=== PATIENT | female | born 1935 | race Caucasian/White ===

== ENCOUNTER 2017-09-28 16:04 | Outpatient (CLI) | payer MEDICARE, OTHER ==
[2017-09-28 16:36] LABS: Hemoglobin 13.9 g/dL (12.0-16.0); Mean Corpuscular HGB CONC 32.9 g/dL (32.0-36.0); Mean Corpuscular Hemoglobin 31.8 pg (27.0-31.0); Mean Corpuscular Volume 96.6 fl (81.0-99.0); Mean Platelet Volume 8.6 fL (7.4-10.4); Platelet Count 216 thou/uL (130-400); RBC Distribution Width 11.9 % (11.5-14.5); Red Blood Cell (RBC) Count 4.39 mill/uL (4.20-5.40); White Blood Cell (WBC) Count 5.7 thou/uL (4.8-10.8)
[2017-09-28 16:43] LABS: PTT 26.5 SEC (22.9-36.1); Prothrombin Time 13.1 SEC (12.0-14.7)
[2017-09-28 16:55] LABS: Anion Gap 11 mmol/L (10-20); BUN (Urea Nitrogen) 11 mg/dL (9.8-20.1); Calc. Creatinine Clearance 0 mL/min (70-130); Calcium 9.2 mg/dL (7.8-10.44); Carbon Dioxide 27 mmol/L (23-31); Chloride 98 mmol/L (98-107); Estimated GFR-MDRD 70; Glucose 91 mg/dL (83-110); Potassium 3.9 mmol/L (3.5-5.1); Sodium 132 mmol/L (136-145)
== END 2017-09-28 16:05 | disposition home or self-care (01) ==
LOC: LABBT 16:04
PROVIDERS: ATTEND Surgery
DX: Z01.818 Encounter for other preprocedural examination (principal); M48.061 Spinal stenosis, lumbar region without neurogenic claudication; M54.16 Radiculopathy, lumbar region
CPT/HCPCS: 80048; 85027; 85610; 85730; 93005; 93010

== ENCOUNTER 2017-10-06 18:30 | Day surgery (SDC) | payer MEDICARE, OTHER ==
[2017-09-28 16:22] VITALS: BMI 21.2
[~2017-10-06 18:30] MED LIST: Acetaminophen/Codeine 30-300mg Tablet PO PRN; Bacitracin Zinc Ointment 30 gm TUBE ONE; Bisacodyl 10 MG SUPP PR PRN; CEFAZOLIN/Water 2 GM/20 ML SYRINGE ONE; Dexamethasone 20 MG/5 ML VIAL ONE; Fentanyl 100 MCG/2 ML VIAL ONE; Fleet Enema 133 ML BOT PR PRN; Glycopyrrolate 0.2 MG/ML 5 ML SYRINGE ONE; HYDROmorphone 0.5 MG/0.5 ML SYRINGE ONE; HYDROmorphone 2 MG/ML VIAL SLOW IVP PRN; Hydrochlorothiazide 25 MG TAB PO PRN; Ketorolac Tromethamine 30 MG/ML VIAL IVP PRN; Lidocaine 1% PF 5 ML VIAL ONE; Mag-Al 1200 mg/1200 mg/30 ML UDCUP PO PRN; Milk Of Magnesia 30 ML UDCUP PO PRN; Morphine 4 MG/ML VIAL SLOW IVP PRN; Ondansetron HCl/PF 4 MG/2 ML Vial IVP PRN; Ondansetron HCl/PF 4 MG/2 ML Vial ONE; PHENYLEPHRINE-NS 100 MCG/ML 10 ML SYRINGE ONE; PROPOFOL 200 MG/20 ML VIAL ONE; Promethazine HCl 25 MG/ML VIAL IM PRN; Sodium Chloride 0.9% 10 ML ONE; Thrombin 5000 UNITS/5 ML VIAL ONE; ePHEDrine/0.9% NaCl/PF SYRINGE 50 mg/10 ml ONE
[2017-10-06] MEDS ORDERED: Acetaminophen 325 MG TAB PO PRN (19:00)
[2017-10-06] MEDS: HYDROcodone/Acetaminophen 7.5/325 mg Tablet PO PRN (20:32)
[2017-10-06] MEDS: Sodium Chloride 0.9% 1,000 ML IV SCH (20:33)
[2017-10-06] MEDS: CEFAZOLIN/Water 2 GM/20 ML SYRINGE SLOW IVP SCH (21:29)
[2017-10-07] MEDS: HYDROcodone/Acetaminophen 7.5/325 mg Tablet PO PRN ×5 (02:11→21:26)
[2017-10-07] MEDS: tiZANidine HCl 4 MG TAB PO PRN ×4 (02:12→21:27)
[2017-10-07] MEDS: CEFAZOLIN/Water 2 GM/20 ML SYRINGE SLOW IVP SCH (05:07)
[2017-10-07] MEDS: Levothyroxine Sodium 125 MCG TAB PO SCH (05:07)
[2017-10-07] MEDS: Sodium Chloride 0.9% 1,000 ML IV SCH ×2 (07:21→19:31)
[2017-10-07] MEDS ORDERED: Ondansetron HCl/PF 4 MG/2 ML Vial IVP PRN (08:57)
[2017-10-07] MEDS ORDERED: Ondansetron ODT 4 MG TAB PO PRN (08:57)
--- NOTE | 2017-10-07 11:08 | PRG ---
DATE OF SERVICE: 10/07/2017 SUBJECTIVE: Ms. Steve is postoperative day #01 from L2-L5 laminectomy. She is doing very well and states she feels like she is "20." She is having nausea, though postoperatively and has not yet mobi lized other than to the bathroom, we will work on this today with therapy. Final disposition will be settled once we know how she is doing.
--- NOTE | 2017-10-07 12:02 | OP ---
DATE OF PROCEDURE: 10/06/2017 OR: OR #11. WOUND TYPE: Type 1 wound. SURGEON: Jermaine Prasad M.D. 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 POSTPROCEDURE DIAGNOSES: Multilevel lumbar stenosis with low back and leg pain consistent with neuro genic claudication. PROCEDURE: L2-L3, L3-L4, L4-L5 laminectomies, partial facetectomies with decompression over the L2, L3, L4, L5 nerve roots. DESCRIPTION OF PROCEDURE: After informed consent was obtained from the patient, the patient brought to OR 11. Proper patient pause and identification was carried out. She was placed in excellent endo tracheal anesthesia and positioned prone on the operating table. All appropriate points were padded. We identified the L2, L3, L4, L5 dorsal spines and a linear shelley was made over this region. This a monty was sterilely cleansed, prepared, and draped. Proper patient pause and his case was carried out. The wound was then opened with a combination of sharp, monopolar and blunt dissection, we exposed t he L2, L3, L4 and L5 segments. A localization film confirmed our area of interest. We then performe d L2-L5 laminectomies, partial facetectomies, foraminotomies over the L2, L3, L4, L5 nerve roots. Th ere was no spinal fluid leak. Hemostasis was maximized throughout. The wound was then copiously irr igated and closed in anatomic layers following the sprinkling of vancomycin powder. The patient then emerged from anesthesia.
[2017-10-08] MEDS: HYDROcodone/Acetaminophen 7.5/325 mg Tablet PO PRN ×3 (05:43→17:21)
[2017-10-08] MEDS: tiZANidine HCl 4 MG TAB PO PRN ×3 (05:43→22:52)
[2017-10-08] MEDS: Levothyroxine Sodium 125 MCG TAB PO SCH (05:43)
--- NOTE | 2017-10-08 12:31 | PRG ---
DATE OF SERVICE: 10/08/2017 SUBJECTIVE: Ms. Steve is postoperative day #2 from multilevel lumbar laminectomy. She is an 82-yea r-old very pleasant female. Neurologically, she is doing well. The biggest issue right now is await ing final disposition plans. She is mobilizing with more confidence in her legs and states her leg p ain compared to before surgery has certainly improved. She has as expected postoperative pain in the back. We will make arrangements for a transfer to inpatient rehab.
[2017-10-08] MEDS ORDERED: D5 1/2 NS w/20 mEq KCL 1,000 ML ONE (14:36)
[2017-10-08] MEDS: traMADol HCl 50 MG TAB PO PRN ×2 (14:48→22:52)
[2017-10-08] MEDS: Sodium Chloride 0.9% 1,000 ML IV SCH ×2 (16:47→19:59)
[2017-10-09] MEDS: HYDROcodone/Acetaminophen 7.5/325 mg Tablet PO PRN ×2 (05:48→11:56)
[2017-10-09] MEDS: Levothyroxine Sodium 125 MCG TAB PO SCH (05:48)
--- NOTE | 2017-10-09 08:44 | PRG ---
DATE OF SERVICE: 10/09/2017 Ms. Steve is now postoperative day #3, having undergone multilevel lumbar laminectomies. She contin ues to improve. She states her back pain is slightly improved today than it was yesterday. She stat es that typically it is only present with movement. Muscle relaxants help to improve her pain. She states she does feel slightly stronger on her feet and was able to walk a significant distance yester day with physical therapy. She has good strength in the bilateral lower extremities with intact sens ation to light touch throughout. She is stable for discharge and we are [facility]. All her paperwork has been completed and she is ready for discharge once arra ngements have been made. Please call with any questions.
[2017-10-09] MEDS: traMADol HCl 50 MG TAB PO PRN (08:46)
[2017-10-09] MEDS: Sodium Chloride 0.9% 1,000 ML IV SCH (11:33)
[2017-10-09 12:09] VITALS: BP 162/84; TEMP 97.9
--- NOTE | 2017-10-12 09:51 | DIS ---
DATE OF ADMISSION: 10/06/2017 DATE OF DISCHARGE: 10/09/2017 DISCHARGE DIAGNOSES: 1. Low back pain with bilateral lower extremity pain. 2. Neurogenic claudication. 3. Lumbar spinal stenosis. HOSPITAL COURSE: Ms. Steve was admitted to [facility] to undergo L2-L5 laminectomies, part ial facetectomies, and foraminotomies with Dr. Prasad on 10/06/2017. The patient required 3 overnigh t stays for control with back pain as well as improvement in her gait. She later met criteria for di schardaniel and was later admitted to inpatient rehab, doing well. At the time of discharge, her low gregorio k incisional pain is significantly improved and she had complete resolution of her bilateral lower-ex tremity pain. Appropriate patient education was provided and outpatient followup appointments were s cheduled. Enough opportunity was given to the patient and her family to discuss their questions and concerns and at the time of discharge, she was doing very well postoperatively.
== END 2017-10-09 13:45 ==
LOC: SDC 18:30 → SJJU 18:31 → SDC 10-09 13:45
PROVIDERS: ATTEND Surgery
PROC: 01NB0ZZ Release Lumbar Nerve, Open Approach (ICD-10-PCS; principal; 2017-10-06)
DX: M48.062 Spinal stenosis, lumbar region with neurogenic claudication (principal); F17.210 Nicotine dependence, cigarettes, uncomplicated; Z79.899 Other long term (current) drug therapy
CPT/HCPCS: 63047; 63048 ×3; 76001; 96374 ×2; 97110; 97116 ×2; 97139 ×2; 97530 ×2; 97535; G8978; G8979; G8987; G8988; A4216; J0131; J1100; J1170; J2001; J2405; J2550; J2704; J3010; J3370; J3490; Q0162

== ENCOUNTER 2019-10-01 19:10 | Inpatient (IN) | payer MEDICARE, OTHER ==
[2019-10-01 20:04] LABS: Bacteria/HPF None Seen HPF (None Seen); Bilirubin Negative (Negative); Blood, Urine 2+ (Negative); Clarity Clear (Clear); Glucose, Urine (Dipstick) Normal (Negative); Leukocyte Negative Leu/uL (Negative); Nitrite Negative (Negative); Protein, Urine (Dipstick) Negative (Neg-Trace); RBC/HPF Greater than 50 HPF (0-3); Squamous Epithelial 0-3 HPF (0-3); Urobilinogen Normal mg/dL (Less than 2)
[2019-10-01 20:23] LABS: #Lymphocytes 1.3 thou/uL (1.20-3.40); #Monocytes 0.7 thou/uL (0.11-0.59); #Neutrophils 8.1 thou/uL (1.40-6.50); %Basophils 0.1 % (0.0-1.0); %Eosinophils 0.5 % (0.0-10.0); %Monocytes 6.7 % (0.0-10.0); %Neutrophils 79.8 % (42.0-75.0); Hemoglobin 12.9 g/dL (12.0-16.0); Mean Corpuscular HGB CONC 33.8 g/dL (32.0-36.0); Mean Corpuscular Hemoglobin 34.3 pg (27.0-31.0); Mean Platelet Volume 8.7 fL (7.4-10.4); Platelet Count 192 thou/uL (130-400); RBC Distribution Width 13.1 % (11.5-14.5); Red Blood Cell (RBC) Count 3.75 mill/uL (4.20-5.40); White Blood Cell (WBC) Count 10.2 thou/uL (4.8-10.8)
--- NOTE | 2019-10-01 20:30 | RAD ---
CHEST ONE VIEW: 10/01/19 HISTORY: Altered mental status. COMPARISON: None. Heart size is enlarged. Mild pulmonary venous congestion. No pneumothorax. No effusion. No acute osse ous abnormality. IMPRESSION: Cardiomegaly and low grade pulmonary venous congestion. POS: HOME
--- NOTE | 2019-10-01 20:31 | CT ---
CT BRAIN WITHOUT CONTRAST: 10/01/19 HISTORY: Altered mental status. COMPARISON: None. FINDINGS: High grade periventricular and deep white matter microangiopathic changes. 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 No acute hemorrhage. Senile basal ganglia calcifications. Calvarium is intact. Left maxillary sinus mucosal retention cyst. IMPRESSION: Chronic findings. No acute intracranial abnormality. POS: HOME
[2019-10-01 20:43] LABS: ALT (SGPT) 13 U/L (8-55); AST (SGOT) 33 U/L (5-34); Albumin 4.1 g/dL (3.4-4.8); Alkaline Phosphatase 81 U/L (40-110); Anion Gap 18 mmol/L (10-20); BUN (Urea Nitrogen) 13 mg/dL (9.8-20.1); Bilirubin, Total 0.7 mg/dL (0.2-1.2); CK (CPK) 424 U/L (29-168); Calc. Creatinine Clearance 0 mL/min (70-130); Carbon Dioxide 21 mmol/L (23-31); Chloride 101 mmol/L (98-107); Estimated GFR-MDRD 44; Globulin 2.7 g/dL (2.4-3.5); Glucose 77 mg/dL (83-110); Potassium 4.1 mmol/L (3.5-5.1); Protein, Total 6.8 g/dL (6.0-8.3); Sodium 136 mmol/L (136-145)
[2019-10-01] MEDS ORDERED: Aspirin 300 MG Suppository ONE (21:42)
[2019-10-02] MEDS ORDERED: Acetaminophen 650 MG Suppository PR PRN (00:01)
[2019-10-02] MEDS ORDERED: Sodium Chloride 0.9% 1,000 ML IV SCH (00:15)
--- NOTE | 2019-10-02 00:48 | PDOC.HHP ---
Hospitalist HPI - History of Present Illness Confusion, slurred speech History of Present Illness: Patient reportedly AOx4 as per her son who spoke with Dr. Cornejo. She lives alone and noted to be confused today with slurred speech. She was found by EMS in bed soaked in urine. Family last spoke with her on at which time she was at baseline. They were unable to reach her today which prompted them to call EMS. Patient with abnormal speech, unable to obtain much information from her. Able to follow commands and answer some questions. She knows she is at [facility]. Otherwise answering with garbled speech. Shakes her head yes to having trouble speaking. Shakes her head yes when asked if she lives alone. ED Course: CT brain: Chronic findings. No acute intracranial abnormality. Chest Xray: Cardiomegaly and low grade pulmonary venous congestion. Labs notable for CK 424, BUN 13, Creat 1.17, GFR 44. Glucose 77. Trop negative. WCC 10.2, Hgb 12.9, Platelets 192, neutrophils 8.1 UA 11-20 WBC, >50 RBC, 2+ blood. Per RN in ED, UA obtained via straight catheter and had 250 mLs out. Rectal aspirin given in ED. Hospitalist ROS - Review of Systems ROS unobtainable: due to mental status Other: Nods yes to having difficulty with speech. - Medication Medications: Unable to verify due to mental status. Son does not know. ALLERGIES: No known drug allergies. Hospitalist History - Past Medical History Source: family, old records Cardiac: reports: HTN, Hyperlipidemia Endocrine: reports: Hypothyroidism - Past Surgical History Past Surgical History: reports: Other (back surgery) - Family History Family History: reports: no pertinent history - Social History Smoking Status: Never smoker Alcohol: reports: None Drugs: reports: none Living Situation: Alone Activity level: independent ambulation (at baseline) - Exam General Appearance: awake alert (Alert to place ([facility]), attempting to get out of bed.) Eye: PERRL, anicteric sclera ENT: normocephalic atraumatic Neck: supple, symmetric, no lymphadenopathy Heart: RRR, normal peripheral pulses Respiratory: CTAB, no rales, no ronchi, normal chest expansion, no tachypnea Gastrointestinal: soft, non-distended Extremities: no edema Skin: tenting Neurological: speech deficit (abnormal speech, ?dysarthria) Neurological - other findings: Follows all comands very well, facial movements normal Musculoskeletal: normal tone, normal strength Musculoskeletal - other findings: Power 5/5 in all limbs, nods yes that sensation is normal Psychiatric: oriented to place Hospitalist Results - Labs Result Diagrams: 10/01/19 20:12 10/01/19 20:12 Lab results: WBC 10.2 thou/uL (4.8-10.8) 10/01/19 20:12 Hgb 12.9 g/dL (12.0-16.0) 10/01/19 20:12 Hct 38.0 % (36.0-47.0) 10/01/19 20:12 MCV 101.0 fL (78.0-98.0) H 10/01/19 20:12 Plt Count 192 thou/uL (130-400) 10/01/19 20:12 Neutrophils % 79.8 % (42.0-75.0) H 10/01/19 20:12 Sodium 136 mmol/L (136-145) 10/01/19 20:12 Potassium 4.1 mmol/L (3.5-5.1) 10/01/19 20:12 Chloride 101 mmol/L (98-107) 10/01/19 20:12 Carbon Dioxide 21 mmol/L (23-31) L 10/01/19 20:12 BUN 13 mg/dL (9.8-20.1) 10/01/19 20:12 Creatinine 1.17 mg/dL (0.6-1.1) H 10/01/19 20:12 Glucose 77 mg/dL (83-110) L 10/01/19 20:12 Calcium 9.0 mg/dL (7.8-10.44) 10/01/19 20:12 Total Bilirubin 0.7 mg/dL (0.2-1.2) 10/01/19 20:12 AST 33 U/L (5-34) 10/01/19 20:12 ALT 13 U/L (8-55) 10/01/19 20:12 Alkaline Phosphatase 81 U/L (40-110) 10/01/19 20:12 Creatine Kinase 424 U/L (29-168) H 10/01/19 20:12 Troponin I 0.026 ng/mL (< 0.028) 10/01/19 20:12 Serum Total Protein 6.8 g/dL (6.0-8.3) 10/01/19 20:12 Albumin 4.1 g/dL (3.4-4.8) 10/01/19 20:12 Urine Ketones Negative mg/dL (Negative) 10/01/19 19:56 Urine Blood 2+ (Negative) A 10/01/19 19:56 Urine Nitrite Negative (Negative) 10/01/19 19:56 Ur Leukocyte Esterase Negative Augusto/uL (Negative) 10/01/19 19:56 Urine RBC Greater than 50 HPF (0-3) A 10/01/19 19:56 Urine WBC 11-20 HPF (0-3) A 10/01/19 19:56 Ur Squamous Epith Cells 0-3 HPF (0-3) 10/01/19 19:56 Urine Bacteria None Seen HPF (None Seen) 10/01/19 19:56 - Radiology Interpretation CT scan - head Status: report reviewed by me Chest x-ray Status: report reviewed by me Hospitalist H&P A/P - Problem (1) Confusion Code(s): R41.0 - DISORIENTATION, UNSPECIFIED Status: Acute (2) Speech abnormality Status: Acute (3) EDIS (acute kidney injury) Code(s): N17.9 - ACUTE KIDNEY FAILURE, UNSPECIFIED Status: Acute (4) Essential hypertension Code(s): I10 - ESSENTIAL (PRIMARY) HYPERTENSION Status: Chronic (5) Hyperlipidemia Code(s): E78.5 - HYPERLIPIDEMIA, UNSPECIFIED Status: Chronic - Plan Plan: ?Confusion rather than dysarthria. Follows commands very well and oriented to place. Strength intact. Admitted for CVA rule out. Will be going to stroke/obs. Neurology consult placed, input appreciated. MRI brain if found to be indicated. Echo ordered. Has EDIS. Given gentle IVF. No evidence of underlying infection. Will obtain bladder scan to ensure no retention. Monitor glucose (was 77 in the ED, no known diabetes). Home meds to be verified and reconciled. PT/OT Bedside screening for dysphagia. Keep NPO Falls precaution CODE STATUS FULL Surrogate decision maker is her son Felipe Steve. ADDENDUM: notified by RN on stroke unit, patient with >999 mLs on bladder scan and noted to have overflow incontinence upon scanning done at bedside. Carney catheter ordered and will repeat UA/UCx.
[2019-10-02 01:51] VITALS: BMI 21.8
[2019-10-02 03:00] LABS: Lactic Acid 1.2 mmol/L (0.5-2.2)
[2019-10-02 03:33] LABS: Anion Gap 16 mmol/L (10-20); BUN (Urea Nitrogen) 12 mg/dL (9.8-20.1); Calc. Creatinine Clearance 36 mL/min (70-130); Carbon Dioxide 24 mmol/L (23-31); Cardiac Risk 3.8 (Less than 4.5); Chloride 100 mmol/L (98-107); Cholesterol 312 mg/dl (< 200 Desired); Estimated GFR-MDRD 47; Glucose 66 mg/dL (83-110); HDL Cholesterol 83 mg/dL (>60 Neg Risk); LDL Cholesterol, Calculated 206 mg/dL; Potassium 3.7 mmol/L (3.5-5.1); Sodium 136 mmol/L (136-145); Triglycerides 114 mg/dL (Less than 150)
[2019-10-02 05:45] LABS: Bacteria/HPF None Seen HPF (None Seen); Bilirubin Negative (Negative); Blood, Urine 1+ (Negative); Clarity Clear (Clear); Glucose, Urine (Dipstick) Normal (Negative); Leukocyte Negative Leu/uL (Negative); Nitrite Negative (Negative); Protein, Urine (Dipstick) 10 mg/dL (Neg-Trace); Squamous Epithelial 0-3 HPF (0-3); Urobilinogen Normal mg/dL (Less than 2); WBC/HPF 0-3 HPF (0-3)
[2019-10-02 05:46] LABS: Urine Culture Reflex No No
[2019-10-02] MEDS ORDERED: Labetalol HCl 100 MG/20 ML VIAL SLOW IVP PRN (08:40)
[2019-10-02] MEDS ORDERED: D5 1/2 NS w/20 mEq KCL 1,000 ML IV SCH (08:45)
[2019-10-02 08:55] LABS: #Eosinphils 0.1 thou/uL (0.0-0.7); #Lymphocytes 1.5 thou/uL (1.20-3.40); #Monocytes 0.6 thou/uL (0.11-0.59); #Neutrophils 5.7 thou/uL (1.40-6.50); %Basophils 0.3 % (0.0-1.0); %Eosinophils 1.4 % (0.0-10.0); %Lymphocytes 18.3 % (21.0-51.0); %Monocytes 7.6 % (0.0-10.0); %Neutrophils 72.3 % (42.0-75.0); Hemoglobin 12.1 g/dL (12.0-16.0); Mean Corpuscular HGB CONC 33.6 g/dL (32.0-36.0); Mean Corpuscular Hemoglobin 33.8 pg (27.0-31.0); Platelet Count 193 thou/uL (130-400); Red Blood Cell (RBC) Count 3.58 mill/uL (4.20-5.40); White Blood Cell (WBC) Count 7.9 thou/uL (4.8-10.8)
[2019-10-02] MEDS ORDERED: Aspirin 300 MG Suppository PR SCH (09:00)
[2019-10-02] MEDS: hydrALAZINE 20 MG/ML VIAL SLOW IVP PRN (09:31)
[2019-10-02 11:10] LABS: Thyroid Stimulating Hormone 1.5147 uIU/mL (0.35-4.94)
[2019-10-02 11:53] LABS: Free T4 (Free Thyroxine) 0.4 ng/dL (0.70-1.48)
--- NOTE | 2019-10-02 12:32 | MRI ---
MRI BRAIN WITHOUT IV CONTRAST: HISTORY: Altered mental status. Stroke. CVA. COMPARISON: CT brain from 10/01/2019. 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 No evidence for abnormal diffusion to suggest acute infarct. Expe cted flow voids are present. Minimal sinus mucosal changes. No mass or midline shift. No acute hemorr rasta. 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 No e vidence for acute infarct. POS: [facility]
[2019-10-02] MEDS ORDERED: Levothyroxine Sodium 50 MCG TAB PO SCH (13:00)
[2019-10-02] MEDS ORDERED: Aspirin 81 mg Enteric Coated Tablet PO SCH (13:00)
--- NOTE | 2019-10-02 13:39 | PRG ---
DATE OF SERVICE: 10/02/2019 SUBJECTIVE: An 84-year-old female with hypothyroidism, presented to the emergency room with altered mentation along with slurriness of speech. She currently lives alone at home. She was found to have urinary retention. Her initial brain CT was negative for acute findings except for basal ganglia calcification. Chest x-ray was negative for infiltrate. Urinalysis was negative for bacteria. It showed 11 to 20 wbc's with greater than 50 rbc's after straight catheterization. At this time, mentation is gradually improving. She denies any fever, chills, cough, shortness of breath, wheezing, sick contacts, or new focal deficit. REVIEW OF SYSTEMS: As discussed above. OBJECTIVE: VITAL SIGNS: Temperature 98.1, pulse rate of 62, respirations of 14, blood pressure 147/81, blood pressure earlier was 197/107 and 205/113, O2 saturation 98% on room air. GENERAL: An 84-year-old female in no apparent distress. LUNGS: Clear to auscultation bilaterally with minimal rhonchi at bases. There were no wheezing or rales. HEART: S1, S2 present. Regular rate and rhythm. No rubs or gallops. ABDOMEN: Soft, nontender. Bowel sounds present. No rebound or guarding. EXTREMITIES: No edema or calf tenderness. NEUROLOGICAL: The patient is alert, awake, and oriented x2. She thinks this is August of 2019. She knows that she is at [facility]. Power was 5/5 in all extremities. Sensation to touch was normal bilaterally. Reflexes were equivocal. Gait was not assessed. LABORATORY FINDINGS: WBC 7.9, hemoglobin 12.1, hematocrit 36, platelet of 193. Chemistry showed sodium 136, potassium 4.1, chloride 101, bicarb 21, BUN 13, and creatinine 1.17. Her free T4 was 0.4. TSH was 1.51. Total cholesterol was 312 with triglyceride 114, LDL of 206. Urinalysis as discussed above. Urine culture has been negative so far. CT scan of the brain and chest x-ray by my review as discussed above. 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 IMPRESSION: 1. Toxic metabolic encephalopathy, multifactorial. 2. Urinary retention. 3. Suspected urinary tract infection. 4. Chronic kidney disease, stage 3. 5. Hypoglycemia with blood sugar of 66. 6. Hyperlipidemia. 7. History of hypothyroidism with abnormal thyroid studies. 8. Elevated CK of 424 on admission. 9. Mild metabolic acidosis on admission. 10. Uncontrolled hypertension. PLAN: The patient will be monitored in the stroke unit. Neurology input is pending at this time. We will start her on low-dose aspirin. We will add dextrose to the IV fluid. We will resume diet once cleared by Speech. We will start her on low-dose amlodipine. Add low-dose statin and levothyroxine. Echocardiogram is pending. Renal ultrasound is pending. We will check folic acid and vitamin B12. Repeat CK in a.m. Continue Physical Therapy and Occupational Therapy evaluation. DISPOSITION: Probably in 24-48 hours if stable. The patient understands the above plan of care. We will update the family. Job ID: [id number]
--- NOTE | 2019-10-02 14:12 | CON ---
DATE OF TELENEUROLOGY CONSULTATION: 10/02/2019 CHIEF COMPLAINT: Confusion. HISTORY OF PRESENT ILLNESS: The patient was not able to give much medical history. Most of her history was obtained from the chart, and I reviewed the history and physical from both the ED doctor as well as the hospitalist. The patient apparently was alert, awake, oriented, and lives alone. She was found by EMS in her bed soaked in urine. Family last spoke to her on at which time she was at baseline and she was unable to be reached. Therefore, they called EMS and the patient was brought here to the emergency room and admitted now. The patient had abnormal speech and difficulty with her cognitive status and was unable to give any medical history. So, in the ER, she had a CT head and urinalysis and she had 250 mL after catheterization. Current working diagnosis is altered mental status of unknown etiology at this time, and Neurology consultation was called in for this reason. PREVIOUS MEDICAL HISTORY: The patient has history of hypercholesterolemia, hypertension, and hypothyroidism. SURGICAL HISTORY: Back surgery. FAMILY HISTORY: Negative for any similar issues, but mother had CVA at 86 per patient. A brother also had a stroke at 72. She had dementia as well per patient. SOCIAL HISTORY: Nonsmoker. No alcohol. Lives at home. REVIEW OF SYSTEMS: PULMONARY: Negative for shortness of breath or cough. GI: Negative for nausea, vomiting, or diarrhea. NEUROLOGICAL: Positive for altered mental status. GENITOURINARY: Positive for bladder incontinence. MUSCULOSKELETAL: Positive for back pain and back surgery. DERMATOLOGIC: Negative for rash. LAB WORKUP: White count 7.9, hemoglobin 12.1, hematocrit 36, platelet count 193. Chemistry: Sodium 136, potassium 3.7, chloride 100, bicarb 24, BUN 12, creatinine 1.11, glucose 66. Cholesterol 312, triglycerides 114, LDL 206, HDL 83, and free T4 is 0.4. TSH 1.51. Her urinalysis was abnormal, but no growth of any bacteria. Her MRI was completed at the time of this dictation and MRI report did not show any acute infarct, but she did have some atrophy, chronic white matter changes with some old left cerebellar infarct as well. PHYSICAL EXAMINATION: VITAL SIGNS: Temperature 97.7, pulse 55, blood pressure 205/113, and O2 sats 98 %. GENERAL APPEARANCE: Well-built, well-nourished lady, who is comfortable in bed. CHEST: Clear vesicular breathing. CARDIOVASCULAR: S1, S2 heard. No murmurs. ABDOMEN: Soft. NEUROLOGICAL EXAMINATION: HIGHER INTELLECTUAL FUNCTIONS: She was confused and was not oriented to time, place, but oriented to person, and she stated she had back surgery and was in rehab recently and she is aware that she is at the hospital. CRANIAL NERVES 2 THROUGH 12: Normal extraocular movements. Pupils 2 mm, reactive, and normal sensation of face. No facial asymmetry. Tongue midline. MOTOR: Bulk normal. Tone normal. STRENGTH: 5/5 throughout, but she did have a very slight left upper extremity drift and there might be slight left lower extremity weakness of 5-/5, could be chronic, muscle groups tested in iliopsoas, hamstrings, quadriceps, ankle dorsiflexion, plantar flexion, deltoid, biceps, triceps, wrist extension and flexion, finger extension and flexion. DEEP TENDON REFLEXES: 1+ throughout. SENSORY: Normal. CEREBELLAR: Normal. IMPRESSION AND PLAN: The patient is an 84-year-old lady with acute confusional state and incontinence of urine, which was thought to be overflow incontinence and she does not seem to have acute urinary tract infection at this time. She is somewhat confused even now, and she was not in contact with her family for at least 24 hours, which is what prompted this EMS call and ER visit. At this time, she is stable but does not seem to have any acute infarct. This could be multifactorial confusional state, likely due to metabolic issues such as thyroid dysfunction and could be mild dehydration and hypertension as well. I do not see any acute neurological event with this. Please call Neurology if you have further questions. Job ID: [id number] [facility]
--- NOTE | 2019-10-02 14:26 | ULT ---
Bilateral renal ultrasound CLINICAL INDICATION: Urinary retention. Acute renal insufficiency. COMPARISON: None FINDINGS: Right kidney: There is no evidence of a renal mass, renal calculus, or hydronephrosis seen. The right kidney measures 8 cm x 4.7 cm. Left kidney: Prominence of the renal pelvis without definitive calyceal dilatation. There is mild pro minence of the medullary pyramids. No renal cortical thinning or renal mass is visualized. No perinephric fluid collection is seen.The left kidney measures 9 cm x 4.7 cm. Urinary bladder: Distended but otherwise has a normal sonographic appearance. The urinary bladder vol ume is 663.5 mL. Manpower Development Manager notes report that the patient does not have the urge to void. IMPRESSION: 1. Urinary bladder distention with urinary bladder volume of 663.5 mL. The patient reports she does n ot have the urge to void. 2. Mild dilatation of the left renal pelvis. There is otherwise no overt hydronephrosis.
[2019-10-02] MEDS: Amlodipine 5 MG TAB PO SCH ×2 (14:28→15:14)
[2019-10-02] MEDS ORDERED: Amlodipine 5 MG TAB PO SCH ×2 (14:45→21:00)
--- NOTE | 2019-10-02 18:51 | CON ---
DATE OF CONSULTATION: 10/02/2019 REASON FOR CONSULTATION: Unable to place a Carney catheter. HISTORY: Ms. Steve is an 84-year-old female who lives alone and was admitted to the hospital on 10/01/2019 for altered mental status. She was brought to the hospital because the family was unable to get her to respond to phone calls when she was found she was in her bed soaked in her own urine and not oriented. She was brought to the hospital for further evaluation and is currently being evaluated for possible CVA. History is obtained from the chart and from the patient, although the patient's history may not be very reliable. She denies any urologic history. Attempts were made to place Carney catheter by 2 different people and they were unsuccessful. She denies any incontinence. She states that when at home she does not wear any protection and does not have any problems urinating. PAST MEDICAL HISTORY: 1. Thyroid disease. 2. Hyperlipidemia. 3. Hypertension. PAST SURGICAL HISTORY: Back surgery in 2018. SOCIAL HISTORY: Denies excessive alcohol use, although she does have a history of smoking. REVIEW OF SYSTEMS: RESPIRATORY: Denies any wheezing or shortness of breath. CARDIOVASCULAR: Denies chest pain or palpitations. GASTROINTESTINAL: Denies chronic constipation or diarrhea. GENITOURINARY: Please see history of present illness. NEUROLOGIC: Recent altered mental status, but denies any prior history of strokes. PHYSICAL EXAMINATION: VITAL SIGNS: Temperature 99.4, blood pressure 157/90, pulse 65, and O2 saturation 97% on room air. HEENT: Normocephalic and atraumatic. NECK: Supple without masses. CHEST: Clear to auscultation. CARDIOVASCULAR: Regular rate and rhythm. ABDOMEN: Soft and nontender. No palpable masses. Liver and spleen not palpable. No abdominal tenderness noted. GENITOURINARY: External genitalia normal. Urethral meatus is recessed somewhat. No vaginal masses noted. Urethra was sterilely prepped and draped and a catheter was placed. She drained over 600 mL of clear yellow urine. LABORATORY DATA: UA on admission demonstrated no bacteria, there was 1+ blood in the urine. Chemistry: Creatinine 1.11. CBC: WBC 7.9, hemoglobin 12.1, and hematocrit 36.0. Renal ultrasound: Mild fullness in left renal pelvis. No hydronephrosis or renal mass or stone seen. IMPRESSION: Ms. Steve is an 84-year-old female who denies prior urologic history or any voiding symptoms. She is noted to have a large postvoid residual over 600 mL and attempts to place Carney catheter by two different nurses were unsuccessful. The catheter is now in place and draining clear yellow urine. Urine culture at this time is negative at 12 hours. When mental status and ambulation returned to normal, it should be okay to remove her Carney catheter to reassess her voiding pattern. RECOMMENDATIONS: Carney catheter to gravity until the patient has regained normal mental status and ambulatory status and then Carney catheter can be removed. Job ID: [id number]
[2019-10-02] MEDS: Atorvastatin Calcium 10 MG TAB PO SCH (21:24)
[2019-10-03] MEDS ORDERED: Haloperidol Lactate 5 MG/ML VIAL SLOW IVP SCH (03:45)
[2019-10-03] MEDS: Acetaminophen 325 MG TAB PO PRN ×2 (04:20→11:48)
[2019-10-03] MEDS: Levothyroxine Sodium 50 MCG TAB PO SCH (04:20)
[2019-10-03] MEDS ORDERED: Lorazepam 2 MG/ML VIAL SLOW IVP SCH (05:00)
[2019-10-03 05:53] LABS: ALT (SGPT) 12 U/L (8-55); AST (SGOT) 41 U/L (5-34); Albumin 3.6 g/dL (3.4-4.8); Alkaline Phosphatase 69 U/L (40-110); Anion Gap 11 mmol/L (10-20); BUN (Urea Nitrogen) 12 mg/dL (9.8-20.1); Bilirubin, Total 0.8 mg/dL (0.2-1.2); CK (CPK) 912 U/L (29-168); Calc. Creatinine Clearance 33 mL/min (70-130); Calcium 8.7 mg/dL (7.8-10.44); Carbon Dioxide 23 mmol/L (23-31); Chloride 101 mmol/L (98-107); Estimated GFR-MDRD 43; Globulin 2.7 g/dL (2.4-3.5); Glucose 91 mg/dL (83-110); Potassium 3.4 mmol/L (3.5-5.1); Protein, Total 6.3 g/dL (6.0-8.3); Sodium 132 mmol/L (136-145)
[2019-10-03] MEDS ORDERED: Cyanocobalamin 1000 MCG/ML VIAL IM SCH (08:30)
[2019-10-03] MEDS: Amlodipine 5 MG TAB PO SCH ×2 (08:52→22:02)
[2019-10-03] MEDS: Aspirin 81 mg Enteric Coated Tablet PO SCH (08:56)
[2019-10-03] MEDS: Multivit, Therapeutic 1 TAB PO SCH (08:56)
[2019-10-03] MEDS: Folic Acid 1 MG TAB PO SCH ×2 (08:57→22:18)
[2019-10-03] MEDS ORDERED: Folic Acid 1 MG TAB PO SCH (09:00)
[2019-10-03] MEDS ORDERED: Cyanocobalamin (Vitamin B-12) 1,000 MCG TAB PO SCH (09:00)
[2019-10-03] MEDS: NS 0.9% w/ 20 MEQ KCL 1,000 ML/1,000 ML BAG IV SCH ×2 (09:03→22:58)
--- NOTE | 2019-10-03 11:35 | PDOC.HOSPP ---
- Subjective Encounter Date: 10/03/19 Subjective: Patient feels much better and is oriented to person, place and time. - Objective Vital Signs & Weight: Vital Signs (12 hours) Temp Pulse Resp BP BP Pulse Ox 10/03/19 08:52 78 183/90 H 10/03/19 07:53 97.6 F 78 16 183/90 H 98 10/03/19 00:00 98.5 F 68 16 193/95 H 97 Weight Weight 127 lb 4.8 oz I&O: 10/02/19 10/03/19 10/04/19 06:59 06:59 06:59 Intake Total 234 1070 Output Total 662 594 5441 Balance -36 -700 -118 Result Diagrams: 10/02/19 08:35 10/03/19 05:03 Additional Labs: Accuchecks 10/02/19 12:37 POC Glucose 117 H Radiology Reviewed by me: Yes EKG Reviewed by me: Yes Hospitalist ROS - Review of Systems Constitutional: reports: fever, chills, sweats, weakness, malaise, other Eyes: reports: pain, vision change, conjunctivae inflammation, eyelid inflammation, redness, other ENT: reports: ear pain, ear discharge, nose pain, nose discharge, nose congestion, mouth pain, mouth swelling, throat pain, throat swelling, other Respiratory: reports: cough, dry, shortness of breath, hemoptysis, SOB with excertion, pleuritic pain, sputum, wheezing, other Cardiovascular: reports: chest pain, palpitations, orthopnea, paroxysmal noc. dyspnea, edema, light headedness, other Gastrointestinal: reports: nausea, vomiting, abdominal pain, diarrhea, constipation, melena, hematochezia, other Genitourinary: reports: dysuria, frequency, incontinence, hematuria, retention, other Musculoskeletal: reports: neck pain, shoulder pain, arm pain, back pain, hand pain, leg pain, foot pain, other Skin: reports: rash, lesions, shantell, bruising, other Neurological: reports: confusion - Medication Medications: Active Medications Generic Name Dose Route Start Last Admin Trade Name Freq PRN Reason Stop Dose Admin Acetaminophen 650 mg 10/03/19 04:13 10/03/19 04:20 Tylenol PO 650 mg Q4H PRN Administration Headache/Fever/Mild Pain (1-3) Amlodipine Besylate 5 mg 10/03/19 09:00 10/03/19 08:52 Norvasc PO 5 mg BID CHELSEA Administration Aspirin 81 mg 10/03/19 09:00 10/03/19 08:56 Ecotrin PO 81 mg DAILY CHELSEA Administration Atorvastatin Calcium 10 mg 10/02/19 21:00 10/02/19 21:24 Lipitor PO 10 mg HS CHELSEA Administration Cyanocobalamin 1,000 mcg 10/03/19 08:30 10/03/19 10:34 Vitamin B-12 IM 10/03/19 12:00 1,000 mcg ONE CHELSEA Administration Folic Acid 1 mg 10/03/19 09:00 10/03/19 08:52 Folvite PO 1 mg DAILY CHELSEA Administration Folic Acid 1 mg 10/03/19 09:00 10/03/19 08:57 Folvite PO Not Given BID CHELSEA Hydralazine HCl 10 mg 10/02/19 08:40 10/02/19 09:31 Apresoline SLOW IVP 10 mg Q4H PRN Administration SBP Greater Than 180 Potassium Chloride/Sodium Chloride 1,000 ml in 1,000 mls @ 100 mls/hr 08:30 10/03/19 09:03 Ns 0.9% W/ 20 Meq Kcl IV 10/04/19 04:29 1,000 mls .Q10H CHELSEA Administration Levothyroxine Sodium 50 mcg 10/03/19 06:00 10/03/19 04:20 Synthroid PO 50 mcg 0600 CHELSEA Administration Multivitamins 1 tab 10/03/19 09:00 10/03/19 08:56 Theragran PO 1 tab DAILY CHELSEA Administration Sodium Chloride 10 ml 10/02/19 00:01 10/02/19 21:27 Flush - Normal Saline IVF 10 ml Q12HR PRN Administration Saline Flush - Exam General Appearance: awake alert Eye: PERRL, anicteric sclera ENT: normocephalic atraumatic Neck: supple, no carotid bruit Heart: RRR Respiratory: CTAB Gastrointestinal: soft Extremities: no cyanosis Skin: normal turgor Neurological: cranial nerve grossly intact, normal sensation to touch, no weakness, no focal deficits, no new deficit (Patient is alert and oriented to person, place and time.) Hosp A/P (1) Confusion Code(s): R41.0 - DISORIENTATION, UNSPECIFIED Status: Acute - Plan old records reviewed/req, PT/OT MRI brain reviewed which did not reveal any acute intracrtanial pathology. Echocardiography did not reveal PFO. Confusion resolved so no need for EEG at this time. Neurochecks every 4 hours. Continue home medications Continue medical management per primary team. No further recommendations from neurological standpoint. Please call us with questions.
--- NOTE | 2019-10-03 13:08 | PDOC.HOSPP ---
- Subjective Encounter Date: 10/03/19 Encounter Time: 12:00 Subjective: Patient seen and examined for AMS. Mentation improving. No new complaints. Overnight events noted. - Objective Vital Signs & Weight: Vital Signs (12 hours) Temp Pulse Resp BP BP Pulse Ox 10/03/19 11:50 161/93 H 10/03/19 11:25 98 F 61 16 187/85 H 99 10/03/19 08:52 78 183/90 H 10/03/19 07:53 97.6 F 78 16 183/90 H 98 Weight Weight 127 lb 4.8 oz I&O: 10/02/19 10/03/19 10/04/19 06:59 06:59 06:59 Intake Total 234 1070 Output Total 984 263 8455 Balance -51 -700 -126 Result Diagrams: 10/02/19 08:35 10/03/19 05:03 Additional Labs: Laboratory Tests 10/02/19 10/02/19 10/03/19 02:27 02:27 05:03 Creatine Kinase 912 H Cholesterol 312 H LDL Cholesterol, Calc 206 HDL Cholesterol 83 Heart Disease Risk Ratio 3.8 Vitamin B12 Folate Free T4 0.40 L TSH 3rd Generation 1.5147 10/03/19 10/03/19 05:03 05:03 Creatine Kinase Cholesterol LDL Cholesterol, Calc HDL Cholesterol Heart Disease Risk Ratio Vitamin B12 128 L Folate 5.10 L Free T4 TSH 3rd Generation EKG Reviewed by me: Yes (Tele SR) Hospitalist ROS - Review of Systems Respiratory: denies: cough, dry, shortness of breath, hemoptysis, SOB with excertion, pleuritic pain, sputum, wheezing, other Cardiovascular: denies: chest pain, palpitations, orthopnea, paroxysmal noc. dyspnea, edema, light headedness, other - Medication Medications: Active Medications Generic Name Dose Route Start Last Admin Trade Name Freq PRN Reason Stop Dose Admin Acetaminophen 650 mg 10/03/19 04:13 10/03/19 11:48 Tylenol PO 650 mg Q4H PRN Administration Headache/Fever/Mild Pain (1-3) Amlodipine Besylate 5 mg 10/03/19 09:00 10/03/19 08:52 Norvasc PO 5 mg BID CHELSEA Administration Aspirin 81 mg 10/03/19 09:00 10/03/19 08:56 Ecotrin PO 81 mg DAILY CHELSEA Administration Atorvastatin Calcium 10 mg 10/02/19 21:00 10/02/19 21:24 Lipitor PO 10 mg HS CHELSEA Administration Folic Acid 1 mg 10/03/19 09:00 10/03/19 08:52 Folvite PO 1 mg DAILY CHELSEA Administration Folic Acid 1 mg 10/03/19 09:00 10/03/19 08:57 Folvite PO Not Given BID CHELSEA Hydralazine HCl 10 mg 10/02/19 08:40 10/02/19 09:31 Apresoline SLOW IVP 10 mg Q4H PRN Administration SBP Greater Than 180 Potassium Chloride/Sodium Chloride 1,000 ml in 1,000 mls @ 100 mls/hr 08:30 10/03/19 09:03 Ns 0.9% W/ 20 Meq Kcl IV 10/04/19 04:29 1,000 mls .Q10H CHELSEA Administration Levothyroxine Sodium 50 mcg 10/03/19 06:00 10/03/19 04:20 Synthroid PO 50 mcg 0600 CHELSEA Administration Multivitamins 1 tab 10/03/19 09:00 10/03/19 08:56 Theragran PO 1 tab DAILY CHELSEA Administration Sodium Chloride 10 ml 10/02/19 00:01 10/02/19 21:27 Flush - Normal Saline IVF 10 ml Q12HR PRN Administration Saline Flush - Exam General Appearance: NAD Heart: RRR, no gallops Respiratory: no wheezes, no ronchi Gastrointestinal: non-tender, non-distended, normal bowel sounds Extremities: no cyanosis Neurological: no new deficit Hosp A/P - Plan DVT proph w/SCDs 1. Toxic metabolic encephalopathy, multifactorial. 2. Urinary retention s/p Carney 3. Suspected urinary tract infection - less likely 4. Chronic kidney disease, stage 3. 5. Hypoglycemia with blood sugar of 66. 6. Hyperlipidemia. 7. History of hypothyroidism with abnormal thyroid studies. 8. Elevated CK. 9. Mild metabolic acidosis on admission. 10. HTN. 11. Hyponatremia/Hypokalemia 12. Folic acid/Vit B12 def 13. Chronic diastolic HF PLAN: Start IVF Replace Potassium Replace Vit B12/Folic acid Cont Levothyroxine Echo reviewed Cont Carney for now Will r/o constipation causing urinary retention Urine cultures negative so far - hold Atbx Cont Neurochecks Neuro input appreciated Not stable for discharge - Will require 1-2 days for stablization - Will change to inpt status AM labs
[2019-10-03] MEDS ORDERED: Polyethylene Glycol 3350 17 GM Packet PO SCH (13:15)
[2019-10-03] MEDS ORDERED: Senokot S 8.6-50 MG TAB PO SCH (13:15)
[2019-10-03] MEDS ORDERED: Lorazepam 2 MG/ML VIAL SLOW IVP PRN (13:21)
[2019-10-03] MEDS: Acetaminophen 325 MG TAB PO SCH ×2 (13:51→22:02)
[2019-10-03] MEDS: Nicotine 7 MG PATCH TD SCH (13:51)
[2019-10-03] MEDS ORDERED: cloNIDine 0.1 MG TAB PO PRN (14:05)
--- NOTE | 2019-10-03 14:39 | RAD ---
2 VIEWS ABDOMEN: Date: 10/03/2019 COMPARISON: None. HISTORY: Abdominal pain with urinary retention. FINDINGS: Supine imaging demonstrates significant stool overlying the colon. There is prominent multilevel dege nerative change within the lumbar spine with levoscoliosis and multilevel prominent disc space narrow ing, degenerative end plate change, vacuum disc formation, and right lateral osteophyte formation. A decubitus radiograph with the patient's left side down is provided. No free intraperitoneal air is appreciated. Bowel gas pattern appears nonobstructed. IMPRESSION: Nonobstructed bowel gas pattern with no free intraperitoneal air seen. POS: [facility]
[2019-10-03] MEDS: hydrALAZINE 20 MG/ML VIAL SLOW IVP PRN (15:11)
[2019-10-03] MEDS: Senokot S 8.6-50 MG TAB PO SCH (22:03)
[2019-10-03] MEDS: Atorvastatin Calcium 10 MG TAB PO SCH (22:04)
[2019-10-04] MEDS: Folic Acid 1 MG TAB PO SCH ×2 (08:34→21:50)
[2019-10-04] MEDS: Levothyroxine Sodium 50 MCG TAB PO SCH (08:34)
[2019-10-04] MEDS: Amlodipine 5 MG TAB PO SCH ×2 (08:34→21:49)
[2019-10-04] MEDS: Aspirin 81 mg Enteric Coated Tablet PO SCH (08:34)
[2019-10-04] MEDS: Senokot S 8.6-50 MG TAB PO SCH ×2 (08:35→21:49)
[2019-10-04] MEDS: Acetaminophen 325 MG TAB PO SCH ×3 (08:35→21:49)
[2019-10-04] MEDS: Cyanocobalamin (Vitamin B-12) 1,000 MCG TAB PO SCH (08:35)
[2019-10-04] MEDS: Multivit, Therapeutic 1 TAB PO SCH (08:35)
[2019-10-04 09:26] LABS: #Basophils 0.1 thou/uL (0.0-0.2); #Eosinphils 0.2 thou/uL (0.0-0.7); #Lymphocytes 2.2 thou/uL (1.20-3.40); #Monocytes 0.6 thou/uL (0.11-0.59); #Neutrophils 5.5 thou/uL (1.40-6.50); %Basophils 1.6 % (0.0-1.0); %Eosinophils 2.3 % (0.0-10.0); %Lymphocytes 25.2 % (21.0-51.0); %Monocytes 7.1 % (0.0-10.0); %Neutrophils 63.8 % (42.0-75.0); Hemoglobin 13.4 g/dL (12.0-16.0); Mean Corpuscular HGB CONC 32.5 g/dL (32.0-36.0); Mean Corpuscular Hemoglobin 33.3 pg (27.0-31.0); Mean Platelet Volume 8.5 fL (7.4-10.4); Platelet Count 214 thou/uL (130-400); RBC Distribution Width 13.4 % (11.5-14.5); Red Blood Cell (RBC) Count 4.03 mill/uL (4.20-5.40); White Blood Cell (WBC) Count 8.6 thou/uL (4.8-10.8)
[2019-10-04 09:48] LABS: Anion Gap 14 mmol/L (10-20); BUN (Urea Nitrogen) 10 mg/dL (9.8-20.1); CK (CPK) 772 U/L (29-168); Calc. Creatinine Clearance 37 mL/min (70-130); Calcium 9.4 mg/dL (7.8-10.44); Carbon Dioxide 23 mmol/L (23-31); Chloride 104 mmol/L (98-107); Estimated GFR-MDRD 50; Glucose 76 mg/dL (83-110); Sodium 137 mmol/L (136-145)
[2019-10-04] MEDS: Nicotine 7 MG PATCH TD SCH (13:43)
--- NOTE | 2019-10-04 16:55 | PDOC.PALCO ---
Palliative Care Consult - Consult Details Requesting Physician: Dr Wisdom Reason for Consult: goals of care, family support - Pertinent HPI 84 year old female who lives independently, with son and [id number] in close proximity. 10/01/2019 family was unable to reach Ms Steve and called EMS, she was found in bed, soaked in urine, garbled speech, transported to [facility] for further evaluation. At baseline she is functional with ability to perform all ADL with full orientation.Evaluated in the emergency room and admitted for further evaluation and management related to confusion, speech abnormality, acute kidney injury, hypertension - Pertinent PMH HTN, HDL, Hypothyroid - Social History Smoking Status: Never smoker Smoking: no tobacco exposure Alcohol Use: none Drug Use History: none Living Situation: independent - Medications MAR Reviewed: Yes - Allergies Allergies/Adverse Reactions: Allergies Allergy/AdvReac Type Severity Reaction Status Date / Time No Known Allergies Allergy Verified 10/06/17 23:22 - Subjective Awake, alert. Discussed that she does not remember events prior to arrival to the emergency room or right after. States right leg pain with movement, but mot significant. Converses easily and other than gap in memory with events surrounding current hospital admission - ROS Constitutional: alert, weakness Eyes: other (Denies visual changes) ENT: other (Denies throat pain, congestion) Respiratory: other (Denies cough, shortness of breath) Cardiology: other (Denies chest pain, palpitations) Gastrointestinal: other (Poor appitite) Musculoskeletal: leg pain Neurological: other (denies dizziness, numbness, tremor) Skin: bruising Psychological: anxiety - Objective Vital Signs: Vital Signs - Most Recent Temp Pulse Resp BP Pulse Ox 98.7 F 77 16 125/84 97 10/04/19 16:00 10/04/19 16:00 10/04/19 16:00 10/04/19 16:00 10/04/19 16:00 Palliative Performance Scale: 40 - Physical Exam Constitutional: NAD HEENT: EOMI, moist MMs, PERRLA, sclera anicteric Respiratory: no wheezing, unlabored breathing Cardiovascular: RRR Gastrointestinal: continent, soft, non-tender Genitourinary: cochran catheter Musculoskeletal: no cyanosis, no clubbing Neurology: moves all 4 limbs, no focal deficits Skin: cap refill <2 seconds, bruising, fragile, friable Psychiatric: A&O x 3, normal mood - Problem List (1) Urinary retention Code(s): R33.9 - RETENTION OF URINE, UNSPECIFIED Current Visit: Yes Status: Acute (2) Palliative care encounter Code(s): Z51.5 - ENCOUNTER FOR PALLIATIVE CARE Current Visit: Yes Status: Acute (3) EDIS (acute kidney injury) Code(s): N17.9 - ACUTE KIDNEY FAILURE, UNSPECIFIED Current Visit: Yes Status : Acute (4) Confusion Code(s): R41.0 - DISORIENTATION, UNSPECIFIED Current Visit: Yes Status: Acute (5) Essential hypertension Code(s): I10 - ESSENTIAL (PRIMARY) HYPERTENSION Current Visit: Yes Status: Chronic - Plan/Recommendations Plan: Patient gave insight into her life, lives close to her son and [id number] and two grandchildren. Was distracted by not knowing where her wedding ring was , confirmed with [id number] it was at home and relayed to patient. Daughter in law hopeful for patient to return to home setting, secondary to patient living independently she states family plans on staying with Ms Steve. Discuss home health if patient transitions home with cochran, and possible PT for strength. Discussed decline and consideration for living situation as patient may be transitioning from being able to live independently, [id number] said they were already discussing this as a family and will visit further with Ms Steve after discharge. Continue with full resuscitation measures. Please also refer to Kasia Mistry RNcoloring room worker notes in note section. Communicated with Dr Wisdom [60] minutes spent on this encounter with >50% of the time in counseling and coordination of care. Thank you for this very appropriate consult.
--- NOTE | 2019-10-04 17:44 | PDOC.HOSPP ---
- Subjective Encounter Date: 10/04/19 Encounter Time: 16:00 Subjective: Patient seen and examined for AMS. [place] improved. No new focal deficits. No new complaints. No overnight events - Objective Vital Signs & Weight: Vital Signs (12 hours) Temp Pulse Pulse Pulse Resp BP BP 10/04/19 16:00 98.7 F 77 16 10/04/19 11:49 97.7 F 72 16 10/04/19 08:42 66 68 175/88 H 179/90 H 10/04/19 08:32 62 10/04/19 07:44 98.2 F 77 17 BP Pulse Ox 10/04/19 16:00 125/84 97 10/04/19 11:49 161/81 H 98 10/04/19 08:42 10/04/19 08:32 158/90 H 10/04/19 07:44 171/102 H 94 L Weight Admit Weight 127 lb 4.8 oz Weight 127 lb 4.8 oz I&O: 10/03/19 10/04/19 10/05/19 06:59 06:59 06:59 Intake Total 1550 1020 Output Total 700 2400 895 Balance -700 -850 125 Result Diagrams: 10/04/19 09:16 10/04/19 09:16 EKG Reviewed by me: Yes (Tele SR) Hospitalist ROS - Review of Systems Respiratory: denies: cough, dry, shortness of breath, hemoptysis, SOB with excertion, pleuritic pain, sputum, wheezing, other Cardiovascular: denies: chest pain, palpitations, orthopnea, paroxysmal noc. dyspnea, edema, light headedness, other - Medication Medications: Active Medications Generic Name Dose Route Start Last Admin Trade Name Freq PRN Reason Stop Dose Admin Acetaminophen 650 mg 10/03/19 15:00 10/04/19 15:36 Tylenol PO 650 mg TID CHELSEA Administration Amlodipine Besylate 5 mg 10/03/19 09:00 10/04/19 08:34 Norvasc PO 5 mg BID CHELSEA Administration Aspirin 81 mg 10/03/19 09:00 10/04/19 08:34 Ecotrin PO 81 mg DAILY CHELSEA Administration Atorvastatin Calcium 10 mg 10/02/19 21:00 10/03/19 22:04 Lipitor PO 10 mg HS CHELSEA Administration Cyanocobalamin 1,000 mcg 10/04/19 09:00 10/04/19 08:35 Vitamin B-12 PO 1,000 mcg DAILY CHELSEA Administration Folic Acid 1 mg 10/03/19 09:00 10/04/19 08:34 Folvite PO 1 mg BID CHELSEA Administration Hydralazine HCl 10 mg 10/02/19 08:40 10/03/19 15:11 Apresoline SLOW IVP 10 mg Q4H PRN Administration SBP Greater Than 180 Levothyroxine Sodium 50 mcg 10/03/19 06:00 10/04/19 08:34 Synthroid PO 50 mcg 0600 CHELSEA Administration Multivitamins 1 tab 10/03/19 09:00 10/04/19 08:35 Theragran PO 1 tab DAILY CHELSEA Administration Nicotine 7 mg 10/03/19 13:15 10/04/19 13:43 Nicoderm Patch TD 7 mg Q24HR CHELSEA Administration Senna/Docusate Sodium 2 tab 10/03/19 21:00 10/04/19 08:35 Senokot S PO 2 tab BID CHELSEA Administration Sodium Chloride 10 ml 10/02/19 00:01 10/02/19 21:27 Flush - Normal Saline IVF 10 ml Q12HR PRN Administration Saline Flush - Exam General Appearance: NAD Heart: RRR, no gallops Respiratory: no wheezes, no ronchi Gastrointestinal: non-tender, non-distended, normal bowel sounds Neurological: no new deficit Psychiatric: normal affect, A&O x 3 Hosp A/P - Plan DVT proph w/SCDs 1. Toxic metabolic encephalopathy, multifactorial. 2. Urinary retention requiring Carney 3. Suspected urinary tract infection - less likely 4. Chronic kidney disease, stage 3. 5. Hypoglycemia with blood sugar of 66. 6. Hyperlipidemia. 7. History of hypothyroidism with abnormal thyroid studies. 8. Elevated CK. 9. Mild metabolic acidosis on admission. 10. HTN. 11. Hyponatremia/Hypokalemia 12. Folic acid/Vit B12 def 13. Chronic diastolic HF PLAN: DC IVF Cont Vit B12/Folic acid Cont Levothyroxine Cont Amlodipine DC Carney Urine cultures negative - hold Atbx Monitor PVRs DC home with HHC in AM if stable Palliative care input appreciated
[2019-10-04] MEDS: Atorvastatin Calcium 10 MG TAB PO SCH (21:50)
[2019-10-05] MEDS: Levothyroxine Sodium 50 MCG TAB PO SCH (06:19)
[2019-10-05] MEDS: Amlodipine 5 MG TAB PO SCH (09:34)
[2019-10-05] MEDS: Acetaminophen 325 MG TAB PO SCH ×2 (09:34→16:10)
[2019-10-05] MEDS: Cyanocobalamin (Vitamin B-12) 1,000 MCG TAB PO SCH (09:35)
[2019-10-05] MEDS: Multivit, Therapeutic 1 TAB PO SCH (09:35)
[2019-10-05] MEDS: Folic Acid 1 MG TAB PO SCH (09:35)
[2019-10-05] MEDS: Aspirin 81 mg Enteric Coated Tablet PO SCH (09:35)
[2019-10-05] MEDS: Senokot S 8.6-50 MG TAB PO SCH (09:35)
[2019-10-05] MEDS ORDERED: Bisacodyl 10 MG SUPP PR PRN (11:15)
[2019-10-05] MEDS ORDERED: Cyanocobalamin 1000 MCG/ML VIAL IM SCH (12:15)
[2019-10-05] MEDS: Nicotine 7 MG PATCH TD SCH (12:34)
[2019-10-05 15:53] VITALS: BP 158/93; TEMP 98.3
--- NOTE | 2019-10-05 15:54 | PDOC.PALPN ---
Palliative Progress Note - Subjective Awake, alert, appears to be more at baseline. - Objective Vital Signs: Vital Signs - Most Recent Temp Pulse Resp BP Pulse Ox 98.2 F 73 16 146/84 H 95 10/05/19 12:00 10/05/19 12:00 10/05/19 12:00 10/05/19 12:00 10/05/19 12:00 - Physical Exam Constitutional: NAD HEENT: EOMI, moist MMs, sclera anicteric Respiratory: no wheezing, unlabored breathing Gastrointestinal: continent, soft, non-tender, positive bowel sounds Neurology: moves all 4 limbs Skin: fragile Psychiatric: A&O x 3 Deviation from normal: anxious - Assessment (1) Urinary retention Code(s): R33.9 - RETENTION OF URINE, UNSPECIFIED Current Visit: Yes Status: Acute (2) Palliative care encounter Code(s): Z51.5 - ENCOUNTER FOR PALLIATIVE CARE Current Visit: Yes Status: Acute (3) EDIS (acute kidney injury) Code(s): N17.9 - ACUTE KIDNEY FAILURE, UNSPECIFIED Current Visit: Yes Status : Acute (4) Confusion Code(s): R41.0 - DISORIENTATION, UNSPECIFIED Current Visit: Yes Status: Acute (5) Essential hypertension Code(s): I10 - ESSENTIAL (PRIMARY) HYPERTENSION Current Visit: Yes Status: Chronic - Plan Plan: Hopeful to transition home with home health. Concern is urinary retention. Family aware of consideration to reassess if greater assistance is needed in the home setting. Please also refer to Kasia Mistry RNback tender cylinder in note section. Medication added to facilitate BM. [20] minutes spent on this encounter with >50% of the time in counseling and coordination of care. - ROS Constitutional: alert ENT: other (denies difficulity swallowing) Respiratory: other (denies shortness of breath, cough) Cardiology: other (denies chest pain or palpitations) Gastrointestinal: bloating, constipation Genitourinary: retention Musculoskeletal: leg pain Psychological: other (frustrated with memory loss)
--- NOTE | 2019-10-05 17:48 | DIS ---
DATE OF ADMISSION: 10/03/2019 DATE OF DISCHARGE: 10/05/2019 DISCHARGE DISPOSITION: Home with [facility]. FOLLOWUP: 1. Follow up with primary care physician, Dr. Demond Kong, in 1 week. 2. Follow up with Urology, Dr. Lele Cee, in 1 to 2 weeks. ALLERGIES: NO KNOWN DRUG ALLERGIES. DISCHARGE MEDICATIONS: 1. Amlodipine 5 mg daily. 2. Vitamin B12 1000 mcg daily. 3. Folic acid 1 mg b.i.d. 4. Levothyroxine 50 mcg daily. 5. Multivitamin one tablet daily. 6. MiraLAX 17 g daily. The patient was seen and examined on the day of discharge. Denies any new complaints. BRIEF HOSPITAL COURSE: The patient is an 84-year-old female, who presented to the emergency room with altered mentation. The patient currently lives at home and does not take any medications. She has a history of hypertension and hypothyroidism in the past. The patient was admitted to the Stroke Unit with a diagnosis of altered mentation, rule out CVA. 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 She was evaluated by Neurology, Dr. Simmons. An echocardiogram was negative for patent foramen ovale. It showed chronic diastolic heart failure with [id number] mitral regurgitation and mild tricuspid regurgitation. She was also found to have urinary retention requiring Carney catheter that was placed by Dr. Cee. Carney catheter has been discontinued. She continues to have intermittent urinary retention. Dr. Cee will follow up as outpatient. She was also evaluated by palliative care team. Her mentation has significantly improved. SIGNIFICANT LABORATORY DATA: Vitamin B12 is 128. Folic acid 5.1. TSH was 1.51 with free T4 of 0.4. Sodium 132, potassium 3.4. CK of 424 on admission. Repeat CK was 912. CK yesterday was 772. Repeat CK after 1 to 2 weeks is recommended. Urine cultures were negative. KUB was negative for constipation or bowel obstruction. FINAL DIAGNOSES: 1. Toxic metabolic encephalopathy, multifactorial. 2. Urinary retention requiring Carney catheter which was removed. 3. Urinary tract infection suspected on admission, ruled out. 4. Chronic kidney disease stage 3. 5. Hyponatremia. 6. Hypokalemia. 7. Hypoglycemia with blood sugar of 66. 8. Hyperlipidemia. 9. Hypothyroidism with abnormal thyroid studies. 10. Elevated CK. 11. Mild metabolic acidosis on admission. 12. Hypertension. 13. Vitamin B12 and folic acid deficiency. 14. Chronic diastolic heart failure. 15. [id number] mitral regurgitation. 16. Mild tricuspid regurgitation. 17. Macrocytosis, probably secondary to vitamin B12 and folic acid deficiency. The patient understands the above plan of care. Job ID: [id number]
[2019-10-05] MEDS ORDERED: Polyethylene Glycol 3350 17 GM Packet PO SCH (21:00)
== END 2019-10-05 17:36 | disposition home health service (06) | DRG 92 ==
LOC: ERS 19:10 → 2SE 22:14 → OBSVTOIN 10-03 16:07
PROVIDERS: ADMIT Internal Medicine; ATTEND Internal Medicine
DX: G92 Toxic encephalopathy (principal); I13.0 Hypertensive heart and chronic kidney disease with heart failure and stage 1 through stage 4 chronic kidney disease, or unspecified chronic kidney disease; I50.32 Chronic diastolic (congestive) heart failure; E87.1 Hypo-osmolality and hyponatremia; E87.2 Acidosis; N17.9 Acute kidney failure, unspecified; E03.9 Hypothyroidism, unspecified; R33.9 Retention of urine, unspecified; Z51.5 Encounter for palliative care; N18.3 Chronic kidney disease, stage 3 (moderate); E87.6 Hypokalemia; R73.9 Hyperglycemia, unspecified; E78.5 Hyperlipidemia, unspecified; I08.1 Rheumatic disorders of both mitral and tricuspid valves; D75.89 Other specified diseases of blood and blood-forming organs; E53.8 Deficiency of other specified B group vitamins; E16.2 Hypoglycemia, unspecified
CPT/HCPCS: 36415; 36416; 70450; 70551; 71045; 74019; 76770; 80048; 80053; 80061; 81001; 81003; 81015; 82550; 82607; 82746; 83605; 83735; 83880; 84145; 84439; 84443; 84484; 85025; 87086; 93306; A4353; J0360; J1630; J3420; J3480

== ENCOUNTER 2021-10-24 09:16 | Outpatient (CLI) | payer MEDICARE | END 2021-10-24 09:17 | disposition home or self-care (01) | LOC: BICRAD 09:16 | PROVIDERS: ATTEND Family Medicine | DX: J16.8 Pneumonia due to other specified infectious organisms (principal) | CPT/HCPCS: 71046 ==

== ENCOUNTER 2023-05-25 00:54 | Inpatient (IN) | payer MEDICARE ==
[2023-05-25] MEDS ORDERED: dilTIAZem 125 MG/25 ML SDV ONE (00:59)
[2023-05-25 02:19] LABS: #Eosinphils 0.2 thou/uL (0.0-0.7); #Monocytes 0.6 thou/uL (0.11-0.59); #Neutrophils 3.4 thou/uL (1.40-6.50); %Basophils 0.7 % (0.0-1.0); %Eosinophils 2.9 % (0.0-10.0); %Monocytes 11.6 % (0.0-10.0); %Neutrophils 62.6 % (42.0-75.0); Hematocrit 36.9 % (36.0-47.0); Hemoglobin 12.4 g/dL (12.0-16.0); Mean Corpuscular HGB CONC 33.6 g/dL (32.0-36.0); Mean Corpuscular Hemoglobin 31.6 pg (27.0-31.0); Mean Corpuscular Volume 94.1 fl (78.0-98.0); Mean Platelet Volume 11.2 fL (7.4-10.4); Platelet Count 259 10x3/uL (130-400); RBC Distribution Width 14.7 % (11.5-14.5); Red Blood Cell (RBC) Count 3.92 mill/uL (4.20-5.40); White Blood Cell (WBC) Count 5.5 10x3/uL (4.8-10.8)
[2023-05-25 02:33] LABS: INR-International Normal Ratio 0.9
[2023-05-25 02:34] LABS: PTT 23.5 sec (22.9-36.1)
[2023-05-25 02:44] LABS: ALT (SGPT) 13 U/L (8-55); AST (SGOT) 23 U/L (5-34); Albumin 3.5 g/dL (3.4-4.8); Alkaline Phosphatase 71 U/L (40-110); Anion Gap 14 mmol/L (10-20); BUN (Urea Nitrogen) 17 mg/dL (9.8-20.1); Bilirubin, Total 0.6 mg/dL (0.2-1.2); Calc. Creatinine Clearance 0 mL/min (70-130); Carbon Dioxide 21 mmol/L (23-31); Chloride 104 mmol/L (98-107); Estimated GFR 72; Globulin 3.4 g/dL (2.4-3.5); Glucose 93 mg/dL (83-110); Potassium 3.9 mmol/L (3.5-5.1); Protein, Total 6.9 g/dL (5.8-8.1); Sodium 135 mmol/L (136-145)
[2023-05-25 02:46] LABS: Troponin I 0.011 ng/mL (< 0.028)
[2023-05-25] MEDS ORDERED: Metoprolol Tartrate 5 MG/5 ML VIAL ONE (04:00)
[2023-05-25 04:03] LABS: T4 8.58 ug/dL (4.87-11.72)
[2023-05-25] MEDS ORDERED: Ondansetron PF 4 MG/2 ML Vial IVP PRN (04:24)
[2023-05-25] MEDS ORDERED: Acetaminophen 325 MG TAB PO PRN (04:24)
[2023-05-25] MEDS ORDERED: Digoxin 0.5 MG/2 ML AMP SLOW IVP SCH (05:30)
[2023-05-25] MEDS ORDERED: Digoxin 0.5 MG/2 ML AMP ONE (05:32)
[2023-05-25] MEDS ORDERED: dilTIAZem 125 MG in Sodium Chloride 0.9% 100 ML IVPB SCH (05:45)
[2023-05-25] MEDS ORDERED: Sodium Chloride 0.9% 1,000 ML IV SCH (08:15)
[2023-05-25] MEDS: Levothyroxine Sodium 75 MCG TAB PO SCH (11:03)
[2023-05-25] MEDS: Aspirin 81 mg Enteric Coated Tablet PO SCH (11:03)
[2023-05-25 11:50] VITALS: BMI 20.8
[2023-05-25] MEDS ORDERED: Amlodipine 5 MG TAB PO SCH (13:30)
[2023-05-25] MEDS ORDERED: Iopamidol-370 76% 500 ML MDV (1 ML CHARGE) ONE (14:06)
[2023-05-25] MEDS ORDERED: Sertraline 25 MG TAB PO SCH (21:00)
[2023-05-25] MEDS ORDERED: Melatonin 3 MG TAB PO PRN (22:28)
[2023-05-26 04:42] LABS: #Eosinphils 0.2 thou/uL (0.0-0.7); #Monocytes 0.6 thou/uL (0.11-0.59); #Neutrophils 2.6 thou/uL (1.40-6.50); %Basophils 0.6 % (0.0-1.0); %Lymphocytes 30.2 % (21.0-51.0); %Monocytes 11.7 % (0.0-10.0); %Neutrophils 53.1 % (42.0-75.0); Hematocrit 34.6 % (36.0-47.0); Hemoglobin 11.4 g/dL (12.0-16.0); Mean Corpuscular HGB CONC 32.9 g/dL (32.0-36.0); Mean Corpuscular Hemoglobin 31.3 pg (27.0-31.0); Mean Corpuscular Volume 95.1 fl (78.0-98.0); Mean Platelet Volume 11.9 fL (7.4-10.4); Platelet Count 184 10x3/uL (130-400); RBC Distribution Width 14.7 % (11.5-14.5); Red Blood Cell (RBC) Count 3.64 mill/uL (4.20-5.40); White Blood Cell (WBC) Count 4.8 10x3/uL (4.8-10.8)
[2023-05-26 05:12] LABS: Anion Gap 12 mmol/L (10-20); BUN (Urea Nitrogen) 24 mg/dL (9.8-20.1); Calc. Creatinine Clearance 34 mL/min (70-130); Calcium 8.4 mg/dL (7.8-10.44); Carbon Dioxide 21 mmol/L (23-31); Chloride 107 mmol/L (98-107); Estimated GFR 60; Glucose 74 mg/dL (83-110); Potassium 3.8 mmol/L (3.5-5.1); Sodium 136 mmol/L (136-145)
[2023-05-26] MEDS: Levothyroxine Sodium 75 MCG TAB PO SCH (05:43)
[2023-05-26] MEDS: Dronedarone HCl 400 MG TAB PO SCH ×2 (08:52→16:10)
[2023-05-26] MEDS: Aspirin 81 mg Enteric Coated Tablet PO SCH (08:53)
[2023-05-26] MEDS ORDERED: FLU VACC QS2023(65UP)/MF59C/PF 60 MCG/0.5 ML SYRINGE IM ONE (09:00)
[2023-05-26] MEDS ORDERED: Folic Acid 1 MG TAB PO SCH (09:00)
[2023-05-26] MEDS ORDERED: Amlodipine 5 MG TAB PO SCH ×2 (09:00→21:00)
[2023-05-26] MEDS ORDERED: Electrolyte Replacement Protocol 1 EACH FS SCH (11:00)
[2023-05-26] MEDS ORDERED: Magnevist 469MG/ML 20 ML VIAL ONE (11:39)
[2023-05-26 12:41] VITALS: TEMP 97.8
[2023-05-26 15:51] VITALS: BP 119/57
== END 2023-05-26 16:12 | disposition home or self-care (01) | DRG 309 ==
LOC: ERS 00:54 → ERHOLD 04:27 → 2NO 10:56
PROVIDERS: ADMIT Internal Medicine; ATTEND Family Medicine
DX: I48.0 Paroxysmal atrial fibrillation (principal); I13.0 Hypertensive heart and chronic kidney disease with heart failure and stage 1 through stage 4 chronic kidney disease, or unspecified chronic kidney disease; I50.32 Chronic diastolic (congestive) heart failure; N18.30 Chronic kidney disease, stage 3 unspecified; E78.5 Hyperlipidemia, unspecified; Z66 Do not resuscitate; N20.0 Calculus of kidney; I73.9 Peripheral vascular disease, unspecified; E03.9 Hypothyroidism, unspecified; Z79.899 Other long term (current) drug therapy; Z79.890 Hormone replacement therapy; Z98.890 Other specified postprocedural states; Z87.891 Personal history of nicotine dependence
CPT/HCPCS: 36415; 71045; 71275; 74183; 80048; 80053; 83735; 84436; 84443; 84480; 84484; 85025; 85610; 85730; 93005; 96365; 96366; J1160; J1650; J7050; Q9967

== ENCOUNTER 2024-07-14 16:11 | Outpatient (CLI) | payer MEDICARE | END 2024-07-14 16:12 | disposition home or self-care (01) | LOC: BICRAD 16:11 | PROVIDERS: ATTEND Family Medicine | DX: R05.3 Chronic cough (principal); I48.11 Longstanding persistent atrial fibrillation | CPT/HCPCS: 71046 ==